=== PATIENT | female | born 1990 | race Caucasian/White ===

== ENCOUNTER 2016-11-27 07:13 | Day surgery (SDC) | payer MEDICAID ==
[~2016-11-27] VITALS: Ht 160 cm; Wt 104.5 kg
--- NOTE | ~2016-11-27 | OP ---
PATIENT NAME: MERCY ALCARAZ MEDICAL RECORD: [id number] :92 LOCATION:D.MS [id number] ADMISSION DATE: SURGEON: NANETTE MARTINEZ MD DATE OF OPERATION: 11/27/2016 PREOPERATIVE DIAGNOSES: Chronic left submandibular sialadenitis and bilateral submandibular sialolithiasis. PROCEDURES: 1. Left submandibular gland excision. 2. Transoral excision of right submandibular duct stone. SURGEON: Nanette Martinez MD ANESTHESIA: General orotracheal. BLOOD LOSS: Less than 5 cc. SPECIMENS: Left submandibular gland, right submandibular duct stone. DRAINS: A single STEPHANIE in the left neck. COMPLICATIONS: None. DISPOSITION: Recovery stable. DESCRIPTION OF PROCEDURE: She is brought to the operating room and placed in supine position, head was turned slightly to the right. She was prepped and draped in usual sterile fashion. A skin incision was marked and injected with less than 1 cc of 1% lidocaine with 1:100,000 epinephrine well over 3 cm below the angle of mandible, this was made with a 15 blade, taken down through the platysma with cautery. Flap was elevated superiorly up to just the very bottom of the submandibular gland. The fascia was elevated superiorly to preserve the marginal branch of the facial nerve, dissecting the fascia away from the gland and retracting it superiorly. Posterior and anterior belly of the digastrics were identified. The gland was reflected superiorly. Some small vessels were taken down and ligated with 2-0 silk ties. The facial artery was identified. The hypoglossal nerve was identified and preserved and the facial artery was dissected off tying off some branches to the gland itself with a 2-0 ties, but the facial artery was not ligated. The gland was then retracted inferiorly. The lingual nerve was identified along with the submandibular duct. Submandibular ganglion was divided below the lingual nerve tying small vessels with 3-0 silk ties, bipolar cautery was used as well. This released the lingual nerve which retracted superiorly. The mylohyoid, which was retracted with an [place], the duct was followed anteriorly, no stones were identified. The duct was dissected clamped as far anteriorly as possible and tied with a 2-0 silk tie. The gland was removed and sent for specimen. The wound was irrigated. It was completely clean and dry. A drain was placed through a separate stab incision inferior to the wound. The platysma layer was closed with interrupted 3-0 Vicryl. The skin was closed with running subcuticular 6-0 Prolene. The head was then turned to the midline and the mouth was examined. A biteblock was placed on the left side of mouth. The floor of mouth was examined. She had obvious stone on the floor of mouth near the duct anteriorly. The submandibular duct was probed starting with 4-0 lacrimal duct probe working up to a #2 lacrimal duct probe and then iris scissor was inserted into the duct OPERATIVE REPORT [id number] MERCY ALCARAZ BALTAZAR to make an incision and then several stones, mostly sand-like small pieces immediately extruded and then the larger one, which was probably about 5 mm in length popped out of the duct followed by copious, clear saliva. There is no evidence of infection. There was minimal bleeding and the floor of mouth, the biteblock was removed. She was awakened, extubated, and transported to recovery in good condition. No complications. TRANSINT:[id number] Voice Confirmation ID: [id number] DOCUMENT ID: [id number] NANETTE MARTINEZ MD CC: [id number] DICTATION DATE: 11/27/16 1648 CERTIFIED JUVENILE PROBATION OFFICER: 11/28/16 0217 [facility] [address] [place] [address]
[~2016-11-27 07:13] MED LIST: CYCLOBENZAPRINE10 MG PO; DESMOPRESSIN ACE5 ML NS
[2016-11-27 08:36] LABS: HEMATOCRIT 41.8 % (36.0-48.0); HEMOGLOBIN 14.5 g/dL (12-16); MCH 30.7 pg (26.0-34.0); MCHC 34.7 g/dL (31.0-37.0); MCV 88.6 fL (80.0-100.0); MEAN PLATELET VOLUME 11.6 fL (7.4-10.4); RBC 4.72 10x6/uL (4.00-5.40); WBC 6.9 10x3/uL (4.8-10.8)
[2016-11-27 08:41] VITALS: BP 123/72; BMI 40.8
[2016-11-27 08:46] LABS: HCG URINE NEGATIVE (NEGATIVE)
[2016-11-27 10:47] LABS: ANION GAP 12.2 mmol/L (8-16); CARBON DIOXIDE 25.6 mmol/L (21.0-32.0); POTASSIUM - SERUM 3.8 mmol/L (3.5-5.1)
--- NOTE | 2016-11-27 16:20 | NUR ---
REC TO ROOM 2215 FROM OP. AAO TIMES 4. STEPHANIE DRAIN NOTED TO LEFT ANTERIOR NECK " submandibular" AREA WITH SEROUS SCNG DRAINAGE NOTED. HOB 45 DEGREES. REPORTS PAIN 5/10 " TOLERABLE" DECLINES PAIN MEDS AT THIS TIME. BED LOW CL IN REACH . WILL CONT. TO MONITOR.
--- NOTE | 2016-11-27 16:30 | NUR ---
1620 REPORT PHONED TO DUNCAN TO 0922 FOR OBSERVATION.
--- NOTE | 2016-11-27 17:08 | HP ---
PATIENT: CARMEN ALCARAZ MEDICAL RECORD: [id number] ACCOUNT: [id number] LOCATION:[id number] : 92 ADMISSION DATE: 11/27/16 HISTORY AND PHYSICAL EXAMINATION HISTORY OF PRESENT ILLNESS: Carmen is 26 years old. 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 She has a stone at the hilum of the left gland and it has been recurrently infected and swelling, refractory to medical management. She has a stone anteriorly in the right Marry's duct as well. She is being admitted for left submandibular gland excision and excision of that right submandibular duct stone at that time. PAST MEDICAL HISTORY: Includes DI. CURRENT MEDICATIONS: Include desmopressin 5 times a day, and ____. ALLERGIES: TRAMADOL AND HYDROCODONE. PHYSICAL EXAMINATION: GENERAL: She is healthy appearing, developmentally normal. FACE: Normal, symmetric, no lesions. EYES: Sclerae and conjunctivae are normal. EARS: Canals and TMs are normal. NOSE: No mass, polyps, or drainage. ORAL CAVITY AND OROPHARYNX: She has an obvious large stone in the right submandibular duct right near the frenulum. The left side, there is no palpable stone in the floor of mouth. The left gland is slightly enlarged and tender. NECK: No masses or adenopathy, just a slightly enlarged submandibular gland on the left. CHEST: Clear. CARDIOVASCULAR: Regular rate and rhythm. No murmur. EXTREMITIES: Normal. IMAGING STUDIES: CT scan shows a large stone at the hilum of the left submandibular duct. IMPRESSION: Chronic sialadenitis and sialolithiasis. PLAN: Left submandibular gland excision and excision of a stone from the right submandibular duct at that time. TRANSINT:[id number] Voice Confirmation ID: [id number] DOCUMENT ID: [id number] NANETTE GUSTAFSON MD at 1708 CC: [id number] DICTATION DATE: 11/23/16 163 PROCESS DEVELOPER: 11/23/16 1905 [facility] [address] [place] [address]
[2016-11-27 17:36] VITALS: BP 119/72; Ht 160 cm; Wt 104.5 kg
--- NOTE | 2016-11-27 17:45 | NUR ---
C/O PAIN TO RT WRIST IV SITE. NO RENESS OR EDEMA NOTED BUT UNABLE TO FLUSH IV. APPEARS TO HAVE CLOOTTED. IV DCD CATH INTACT. STERILE DRESSING APPLIED TO PUNCTURE SITE. NO REDNESS OR EDEMA NOTED. PATIENT REPORTS INSTANT PAIN RELIEF UPON REMOVAL OF IV CATHETER. OK TO LEAVE OUT PER DR. GUSTAFSON.
--- NOTE | 2016-11-27 19:00 | NUR ---
PATIENT IN BED RESTING WITH EYES CLOSED. AROUSES TO VOICE. RR EVEN AND UNLABORED. 0 S/S OF DISTRESS. DENIES PAIN AT THIS TIME. DRESSING TO LEFT NECK CDI WITH STEPHANIE DRAIN COMPRESSED. DENIES NEEDS AT THIS TIME. SRX2. BED LOW. CALL LIGHT WITHIN REACH.
[2016-11-27 20:00] VITALS: BP 128/63
--- NOTE | 2016-11-27 20:40 | NUR ---
PATIENT'S HOME MEDICATION GIVEN.
--- NOTE | 2016-11-27 23:00 | NUR ---
PERCOCET GIVEN FOR PAIN PER ORDER. WILL REASSESS.
[2016-11-28 04:00] VITALS: BP 130/66
--- NOTE | 2016-11-28 04:20 | NUR ---
PERCOCET GIVEN FOR PAIN. WILL REASSESS.
--- NOTE | 2016-11-28 06:00 | NUR ---
PATIENT RESTING WITH NO DISTRESS NOTED. ASSESSMENT UNCHANGED THROUGHOUT SHIFT.
[2016-11-28 07:59] VITALS: BP 125/85
[2016-11-28] MEDS ORDERED: PERCOCET 5-3251 TAB PO (08:16)
--- NOTE | 2016-11-28 09:00 | NUR ---
SOME VOMITING DR GUSTAFSON NOTIFIED, RENEA PERDOMO
--- NOTE | 2016-11-28 09:05 | NUR ---
PATIENT ALERT IN HIGH YOUNG POSITION. NO SIGNS OF DISTRESS NOTED. SIDE RAILS UP X2. BED IN LOW POSITION. CALL LIGHT IN REACH.
--- NOTE | 2016-11-28 10:05 | NUR ---
DISCHARGE PAPERS AND INSTRUCTIONS GIVEN TO PATIENT, QUESTIONS ANSWERED, DISCHARGED WITH BELONGINGS PER WC
== END 2016-11-28 10:07 | disposition home or self-care (01) ==
LOC: D.OPS 07:13 → D.PAN 09:30 → D.OPS 10:00 → D.PAN 10:10 → D.OPS 11:30 → D.PAN 11:30 → D.MS 16:38 → D.OPS 11-28 10:07
PROVIDERS: Anesthesiology; Otolaryngology
DX: K11.5 Sialolithiasis (principal); F17.200 Nicotine dependence, unspecified, uncomplicated; Z01.812 Encounter for preprocedural laboratory examination

== ENCOUNTER → 2020-12-14 11:13 | Outpatient (CLI) | payer BC ==
[2016-11-27 17:36] VITALS: BMI 40.8
[~2020-12-14 11:13] MED LIST changes: +PERCOCET 5-3251 TAB PO
[2020-12-14 11:38] LABS: BASOPHILS 0.7 % (0-2); EOSINOPHILS 3.9 % (0-7); HEMATOCRIT 43.6 % (36.0-48.0); HEMOGLOBIN 14.6 g/dL (12-16); LYMPHOCYTES 29.9 % (15-50); MCH 29.5 pg (26.0-34.0); MCHC 33.4 g/dL (31.0-37.0); MCV 88.2 fL (80.0-100.0); MEAN PLATELET VOLUME 9.1 fL (7.4-10.4); MONOCYTES 8.8 % (2-11); NEUTROPHILS 56.7 % (40-80); PLATELET COUNT 155 10x3/uL (130-400); RBC 4.95 10x6/uL (4.00-5.40); RDW 13.7 % (11.5-14.5); WBC 6.7 10x3/uL (4.8-10.8)
[2020-12-14 11:52] LABS: ALBUMIN 3.7 g/dL (3.4-5.0); ALKALINE PHOSPHATASE 54 U/L (30-120); ALT (SGPT) 29 U/L (10-68); BILIRUBIN - TOTAL 0.31 mg/dL (0.2-1.3); CALC OSMOLALITY 268 mosm/kg (275-300); CALCIUM 8.3 mg/dL (8.5-10.1); CARBON DIOXIDE 21.1 mmol/L (21.0-32.0); CHLORIDE - SERUM 107 mmol/L (98-107); CREATININE - SERUM 0.9 mg/dL (0.6-1.3); GLUCOSE 96 mg/dL (74-106); POTASSIUM - SERUM 3.8 mmol/L (3.5-5.1); PROTEIN - SERUM 7.1 g/dL (6.4-8.2); SODIUM 135 mmol/L (136-145); UREA NITROGEN 11 mg/dL (7-18); eGFR NON AFRICAN AMERICAN 79 mL/min (90-120)
== END | disposition home or self-care (01) ==
LOC: D.LAB 11:13
PROVIDERS: ATTEND Psychiatry & Neurology Neurology
DX: G43.909 Migraine, unspecified, not intractable, without status migrainosus (principal)